=== PATIENT | female | born 1995 | race African-American/Black ===

== ENCOUNTER 2022-07-22 19:37 | Emergency (ER) | payer MEDICAID ==
[~2022-07-22] VITALS: Ht 162.6 cm; Wt 65.8 kg
--- NOTE | 2022-07-22 20:20 | NUR ---
Dr Mills into eval patient.
[2022-07-22] MEDS ORDERED: OXYCODONE/APAP 5-325 MG TABLET ONE (20:45)
[2022-07-22] MEDS ORDERED: OXYCODONE/APAP 5-325 MG TABLET PO ONE (20:45)
--- NOTE | 2022-07-22 21:14 | NUR ---
Patient resting in bed, informed of plan of care, aware awaiting lab results prior to going to radiology. No s/s of any distress noted at thi time.
[2022-07-22 21:28] LABS: *URINE HCG, QUAL NEGATIVE (NEGATIVE)
--- NOTE | 2022-07-22 21:55 | NUR ---
patient sitting up in bed talking, states pain was a 10/10 prior to pain medication and no 9/10.
--- NOTE | 2022-07-22 21:57 | NUR ---
xray at bedside.
[2022-07-22] MEDS ORDERED: HYDR-3972 PO (22:52)
--- NOTE | 2022-07-22 23:19 | NUR ---
Patient discharged to home in stable condition with friend taking patient home. Written and verbal after care instructions given. Patient verbalizes understanding of instructions. Stressed follow up or return to ER for worsening s/s.
[2022-07-22 23:20] VITALS: BP 115/70
== END 2022-07-22 23:20 | disposition home or self-care (01) ==
LOC: ER 19:37
DX: S39.012A Strain of muscle, fascia and tendon of lower back, initial encounter (principal); S00.83XA Contusion of other part of head, initial encounter; S80.12XA Contusion of left lower leg, initial encounter; V47.6XXA Car passenger injured in collision with fixed or stationary object in traffic accident, initial encounter; Y92.410 Unspecified street and highway as the place of occurrence of the external cause; J45.909 Unspecified asthma, uncomplicated
CPT/HCPCS: 72100; 84703; A4663